=== PATIENT | male | born 1965 | race Caucasian/White ===

== ENCOUNTER 2016-11-04 19:31 | Emergency (ER) | payer OTHER ==
[2016-11-04 19:37] VITALS: TEMP 97.5
[2016-11-04] MEDS ORDERED: PROPARACAINE 0.5% 15 ML OPHT DROP ONE (19:39)
[2016-11-04] MEDS ORDERED: FLUORESCEIN SODIUM 1 MG STRIP OP ONE (19:39)
--- NOTE | 2016-11-04 20:06 | EDPHY ---
H & P Stated Complaint: something in R eye Time Seen by Provider: 11/04/16 19:40 HPI/ROS: Chief Complaint: Foreign body right eye HPI: 51-year-old male was cutting some plastic with a dermal about an hour ago. He was wearing his glasses wheeze doing this. When he was done he did have plastic covering his face. Shortly thereafter he felt a sensation of a foreign body in his right eye. Patient irrigated water. Is continuing the sensation discomfort in his eye. He does wear glasses but does not wear contacts. Does not have a history of prior injuries in the past. He is up-to- date on his tetanus. Has had some blurring vision. ROS: 10 point Review of Systems is negative except as noted in the HPI. PMH: Denies Social History: No smoking, no alcohol, no recreational drug use Family History: non-contributory Physical Exam: General: Awake, alert no acute distress Eye Exam Visual Acuity: Intact EOM: Intact OU Visual Yoder: Intact OU Pupil: Equal, round and reactive to light and accomodation OU, no pain with consensual light reflex External: Lids, lashes and margins normal OU Slit Lamp; Normal Conjuctiva, Iris normal, Cornea normal, Anterior chambers clear without cells or flare, no hyphema, normal angles Fluorosceine exam: There is mild diffuse uptake in the 11 o'clock position Skin: No rash - Personal History Current Tetanus/Diphtheria Vaccine: Yes Current Tetanus Diphtheria and Acellular Pertussis (TDAP): Yes - Medical/Surgical History Hx Asthma: No Hx Chronic Respiratory Disease: No Hx Diabetes: No Hx Cardiac Disease: No Hx Renal Disease: No Hx Cirrhosis: No Hx Alcoholism: No Hx HIV/AIDS: No Hx Splenectomy or Spleen Trauma: No Other PMH: R knee surgery - Social History Smoking Status: Never smoked Constitutional: Initial Vital Signs Temperature (C) 36.4 C 11/04/16 19:34 Heart Rate 67 11/04/16 19:34 Respiratory Rate 24 H 11/04/16 19:34 Blood Pressure 129/97 H 11/04/16 19:34 O2 Sat (%) 96 11/04/16 19:34 O2 Delivery Mode Room Air Allergies/Adverse Reactions: No Known Allergies Allergy (Unverified 11/04/16 19:34) Home Medications: Medication Instructions Recorded NK [No Known Home Meds] 11/04/16 Departure - Departure Disposition: Home, Routine, Self-Care Clinical Impression: Corneal abrasion Condition: Good Instructions: Corneal Abrasion (ED), Erythromycin (Into the eye) Additional Instructions: Apply erythromycin ointment to the affected eye every 4 hours while awake for the next 2 days. Return to the emergency depart for increasing pain, worsening vision, discharge from the eye, or any other concerns. Follow up with Ophthalmology in 2-3 days if symptoms are not improving. Referrals: Reggie Piedra MD [Primary Care Provider] - As per Instructions Segun Bliss MD [Medical Doctor] - As per Instructions
[2016-11-04] MEDS ORDERED: ERYTHROMYCIN 0.5% 1 GM OPHT.OINT EACHEYE ONE (20:07)
[2016-11-04 20:44] VITALS: BP 135/91; PULSE 70; RESP 16; O2SAT 93
== END 2016-11-04 20:44 | disposition home or self-care (01) ==
DX: S05.01XA Injury of conjunctiva and corneal abrasion without foreign body, right eye, initial encounter (principal); X58.XXXA Exposure to other specified factors, initial encounter